=== PATIENT | female | born 1950 | race Caucasian/White ===

== ENCOUNTER 2017-09-25 19:52 | Emergency (ER) | payer MEDICARE, OTHER ==
[~2017-09-25] VITALS: Ht 170.2 cm; Wt 99.0 kg
[~2017-09-25 19:52] MED LIST: OXYC-360 PO; Z.0.UNABLE TO OBTAIN
[2017-09-25 19:57] VITALS: BP 176/84; PULSE 75; RESP 16; TEMP 97.8; O2SAT 99
[2017-09-25] MEDS ORDERED: oxyCODONE/ACETAMINOPHEN 5 MG/325 MG TAB PO ONE (20:15)
[2017-09-25] MEDS ORDERED: LEVO.05 PO (20:22)
--- NOTE | 2017-09-25 20:47 | PD ---
HPI Chief Complaint: Injury Time Seen by Provider: 20:10 Travel History International Travel<30 days: No Contact w/Intl Traveler<30days: No Traveled to known affect area: No History of Present Illness HPI This is a 67-year-old female here with left wrist and hand pain 1 hour. She slipped on a wet ramp of a [employer] truck falling onto an outstretched hand. She had pain immediately. She denies altered sensation or weakness of the wrist or hand. Pain is constant and throbbing. Severity moderate. Aggravated by range of motion of the wrist and slightly relieved with rest. Denies any other injury. No head injury or loss of consciousness. Patient is not anticoagulated. [facility] Past Medical History Narrative Medical Significant for hypothyroidism Diminished Hearing: No Immunizations Current: Yes Thyroid Disease: Yes Tetanus Vaccination: Unknown Influenza Vaccination: Yes ?: Not Past Surgical History Hysterectomy: Yes Tonsillectomy: Yes Social History Alcohol Use: Yes (occ) Tobacco Use: No Substance Use: No Allergies-Medications (Allergen,Severity, Reaction): Coded Allergies: Iodine and Iodide Containing Produc (Verified Allergy, Severe, 09/25/17) diatrizoate meglumine (Verified Allergy, Severe, Anaphylaxis, 09/25/17) gadobenic acid (Verified Allergy, Severe, Anaphylaxis, 09/25/17) gadodiamide (Verified Allergy, Severe, Anaphylaxis, 09/25/17) gadoteridol (Verified Allergy, Severe, Anaphylaxis, 09/25/17) iodixanol (Verified Allergy, Severe, Anaphylaxis, 09/25/17) iohexol (Verified Allergy, Severe, Anaphylaxis, 09/25/17) Reported Meds & Prescriptions Reported Meds & Active Scripts Active Review of Systems Except as stated in HPI: all other systems reviewed are Neg Eyes: No: Visual changes HENT: No: Headaches Cardiovascular: No: Chest Pain or Discomfort Respiratory: No: Shortness of Breath Gastrointestinal: No: Abdominal Pain Genitourinary: No: Dysuria Skin: No Rash Neurologic: No: Weakness Physical Exam Narrative GENERAL: Alert and well-appearing 67-year-old female in mild distress SKIN: Warm and dry. HEAD: Normocephalic. Atraumatic EYES: Pupils equal, round, reactive to light. EOMs intact. No injection or drainage. NECK: Supple, trachea midline. No cervical midline tenderness. CARDIOVASCULAR: Regular rate and rhythm. No murmur appreciated. No chest wall tenderness. RESPIRATORY: Breath sounds equal bilaterally. No accessory muscle use. GASTROINTESTINAL: Abdomen soft, non-tender, nondistended. MUSCULOSKELETAL: No cyanosis. LUE: +TTP and swelling generalized to the wrist and dorsal aspect of the hand. No obvious deformity. Palpable radial pulse. Flexion and extension of the wrists elicit pain. Can freely wiggle the fingers. Normal sensation with sharp dull discrimination. Brisk cap refill. BACK: Nontender without obvious deformity. No CVA tenderness. Data Data Last Documented VS Vital Signs Date Time Temp Pulse Resp B/P (MAP) Pulse Ox O2 Delivery O2 Flow Rate FiO2 09/25/17 19:57 97.8 75 16 176/84 (114) 99 Orders Orders Wrist, Complete ([id number]) (09/25/17 ) Hand, Complete ([id number]) (09/25/17 ) Oxycodone-Acetamin 5-325 Mg (Percocet (09/25/17 20:15) MDM Medical Decision Making Medical Screen Exam Complete: Yes Emergency Medical Condition: Yes Differential Diagnosis Wrist fracture, metacarpal fracture, sprain versus contusion Narrative Course 67-year-old female with injury to the left wrist and hand. The extremity is neurovascularly intact. Oral pain medication ordered. X-ray of the wrist and hand are pending [id number] End of shift handoff to Dr. Johnston with x-rays pending Ameena Marshall September 25, 2017 20:47
[2017-09-25] MEDS ORDERED: IBUPROFEN 600 MG TAB PO ONE (21:45)
--- NOTE | 2017-09-25 22:14 | RADRPT ---
EXAM DATE/TIME: 09/25/2017 20:50 [facility] COMPARISON: No previous studies available for comparison. INDICATIONS : Fall this afternoon. MEDICAL HISTORY : None. SURGICAL HISTORY : None. ENCOUNTER: Initial ACUITY: 1 day PAIN SCORE: 10/10 LOCATION: Left Proximal hand FINDINGS: Three view examination of the left hand demonstrates no soft tissue swelling, dislocation, or fractur e. The carpal bones appear intact. There is some sclerosis between the distal scaphoid and the pro ximal trapezium and trapezoid bones. The interphalangeal and metacarpophalangeal joints are intact. Bony mineralization is normal. CONCLUSION: No definite acute bony injury is seen. Noe Barnes MD on September 25, 2017 at 22:11 Board Certified Radiologist. This report was verified electronically.
--- NOTE | 2017-09-25 22:17 | RADRPT ---
EXAM DATE/TIME: 09/25/2017 20:51 [facility] COMPARISON: No previous studies available for comparison. INDICATIONS : Fall this afternoon. MEDICAL HISTORY : None. SURGICAL HISTORY : None. ENCOUNTER: Initial ACUITY: 1 day PAIN SCORE: 10/10 LOCATION: Left Wrist FINDINGS: Three view examination of the left wrist demonstrates no soft tissue swelling, dislocation, or fractu re. The carpal bones are in normal alignment. There is sclerosis of the distal radius and the proxi mal trapezium and trapezoid bones. The joint spaces are maintained. Bony mineralization is normal. CONCLUSION: No definite acute bony injury is seen. Noe Barnes MD on September 25, 2017 at 22:12 Board Certified Radiologist. This report was verified electronically.
--- NOTE | 2017-09-25 22:21 | PD ---
Physical Exam Date Seen by Provider: September 25, 2017 Data Data Last Documented VS Vital Signs Date Time Temp Pulse Resp B/P (MAP) Pulse Ox O2 Delivery O2 Flow Rate FiO2 09/25/17 19:57 97.8 75 16 176/84 (114) 99 Orders Orders Wrist, Complete ([id number]) (09/25/17 ) Hand, Complete ([id number]) (09/25/17 ) Oxycodone-Acetamin 5-325 Mg (Percocet (09/25/17 20:15) Ibuprofen (Motrin) (09/25/17 21:45) Splint Or Brace Apply/Monitor (09/25/17 22:19) MDM Medical Record Reviewed: Yes Supervised Visit with MARK: Yes Narrative Course Patient is a 67-year-old female who presents the emergency room with complaints of left-sided wrist and hand pain for the past hour. Patient apparently slipped on a wet ramp and fell onto an outstretched hand. Patient denies any trauma to her head or neck, patient only complains of left wrist and hand pain. An x-rays obtained of the left hand and wrist which shows no acute abnormalities. Last Impressions Hand X-Ray 09/25/17 0000 Signed Impressions: Service Date/Time: September 20:50 - CONCLUSION: No definite acute bony injury is seen. Noe Barnes MD Wrist x-ray with no definite acute bony injury seen Patient was placed in a Velcro splint, patient discharged home with follow-up with orthopedic surgery as needed. Diagnosis Primary Impression: Left wrist sprain Qualified Codes: S63.502A - Unspecified sprain of left wrist, initial encounter Patient Instructions: General Instructions, Narcotic given in the ED Departure Forms: Tests/Procedures Additional Instruction: Please follow-up with orthopedic surgery as needed Rest, ice, NSAIDs for pain Disposition: 01 DISCHARGE HOME Condition: Stable Lo Johnston DO September 25, 2017 22:21
[2017-09-25] MEDS ORDERED: NORC5TAB PO (22:24)
== END 2017-09-25 22:27 | disposition home or self-care (01) ==
LOC: PHEFT 19:52
DX: S63.502A Unspecified sprain of left wrist, initial encounter (principal); W01.0XXA Fall on same level from slipping, tripping and stumbling without subsequent striking against object, initial encounter; E03.9 Hypothyroidism, unspecified
CPT/HCPCS: 73110; 73130; 99283; L3908